=== PATIENT | male | born 1980 | race Caucasian/White ===

== ENCOUNTER 2017-10-25 15:18 | Emergency (ER) | payer SELFPAY ==
[~2017-10-25] VITALS: Ht 177.8 cm; Wt 70.9 kg
[2017-10-25 15:19] VITALS: BP 145/95
== END 2017-10-25 15:47 | disposition home or self-care (01) ==
LOC: ED 15:41
DX: F41.1 Generalized anxiety disorder (principal)
CPT/HCPCS: 99284

== ENCOUNTER 2017-12-08 16:17 | Emergency (ER) | payer SELFPAY ==
[~2017-12-08] VITALS: Ht 177.8 cm; Wt 71.4 kg
[2017-12-08 16:27] VITALS: BP 119/75
== END 2017-12-08 17:23 | disposition home or self-care (01) ==
LOC: ED 17:13
DX: F41.1 Generalized anxiety disorder (principal)
CPT/HCPCS: 99281

== ENCOUNTER 2018-05-14 21:46 | Emergency (ER) | payer SELFPAY ==
[~2018-05-14] VITALS: Ht 177.8 cm; Wt 69.4 kg
[2018-05-14 21:50] VITALS: BP 143/84
[2018-05-14] MEDS ORDERED: LORazepam 1MG TABLET PO ONE (22:30)
[2018-05-14] MEDS ORDERED: LORazepam 1MG TABLET ONE (22:33)
== END 2018-05-14 22:46 | disposition home or self-care (01) ==
LOC: ED 22:25
DX: F41.1 Generalized anxiety disorder (principal)
CPT/HCPCS: 99284

== ENCOUNTER 2019-10-02 13:51 | Emergency (ER) | payer OTHER ==
[~2019-10-02] VITALS: Ht 177.8 cm; Wt 73.0 kg
[2019-10-02 14:15] VITALS: BP 124/79
--- NOTE | 2019-10-02 14:23 | NUR ---
PT STATES HE WAS WALKING AND SLILPPED WHILE CARRYING SNOWBOARD, STATES RIGHT RIB/ARMPIT PAIN SINCE. PT TENDER TO PALPATION, NO ECCHYMOSIS NOTED.
[2019-10-02] MEDS ORDERED: KETOROLAC 30 MG/1 ML IM ONE (14:30)
[2019-10-02] MEDS ORDERED: KETOROLAC 30 MG/1 ML ONE (14:39)
--- NOTE | 2019-10-02 14:41 | NUR ---
PT TO XRAY.
--- NOTE | 2019-10-02 14:47 | NUR ---
PT MEDICATED PER ORDER.
--- NOTE | 2019-10-02 15:10 | NUR ---
Patient/Caregiver given discharge instructions and they have confirmed that they understand the instructions. Patient ambulatory with steady gait.
== END 2019-10-02 15:14 | disposition home or self-care (01) ==
LOC: ED 15:10
DX: S20.211A Contusion of right front wall of thorax, initial encounter (principal); W01.0XXA Fall on same level from slipping, tripping and stumbling without subsequent striking against object, initial encounter; Y93.01 Activity, walking, marching and hiking; Y92.89 Other specified places as the place of occurrence of the external cause; Y99.8 Other external cause status
CPT/HCPCS: 71101; 96372; 99283; J1885